=== PATIENT | male | born 1995 ===

== ENCOUNTER 2018-02-06 21:14 | Emergency (ER) | payer SELFPAY ==
[2018-02-06 21:30] VITALS: TEMP 98.9
--- NOTE | 2018-02-06 21:55 | C.PDOC ---
History Of Present Illness 27 year old male presents to the ED for substance abuse. Patient was brought in by [employer] because he was acting bizarre. He admits to smoking marijuana today. He denies any SI/HI, hallucinations, or any other complaints. Time Seen by Provider: 02/06/18 21:54 Chief Complaint (Nursing): Substance Abuse History Per: Patient, Other ([employer] ) History/Exam Limitations: no limitations Onset/Duration Of Symptoms: Hrs Current Symptoms Are (Timing): Still Present Suicide/Self Injury Attempted (Context): None Modifying Factor(s): Marijuana Associated Symptoms: denies: Suicidal Thoughts, Suicidal Plan Additional History Per: Law Enforcement Past Medical History Reviewed: Historical Data, Nursing Documentation, Vital Signs Vital Signs: Last Vital Signs Temp 98.9 F 02/06/18 21:25 Pulse 92 H 02/07/18 01:12 Resp 18 02/07/18 01:12 BP 105/62 02/07/18 01:12 Pulse Ox 100 02/07/18 01:12 Surgical History: No Surg Hx Family History: States: No Known Family Hx - Social History Hx Alcohol Use: (UNKNOWN) Hx Substance Use: Yes - Immunization History Hx Tetanus Toxoid Vaccination: (UNKNOWN) Hx Influenza Vaccination: (UNKNOWN) Hx Pneumococcal Vaccination: (UNKNOWN) Review Of Systems Psych: Negative for: Depression, Suicidal ideation Physical Exam - Physical Exam Appears: Non-toxic, Other (Belligerent, agitated, combative ) Head: Normacephalic Neck: Normal ROM Chest: Symmetrical Cardiovascular: Rhythm Regular Respiratory: No Rales, No Rhonchi, No Wheezing Gastrointestinal/Abdominal: Soft, No Tenderness Extremity: Normal ROM Extremity: Bilateral: Atraumatic Gait: Steady ED Course And Treatment O2 Sat by Pulse Oximetry: 99 (RA) Pulse Ox Interpretation: Normal Reevaluation Time: 05:28 Reassessment Condition: Improved Disposition Counseled Patient/Family Regarding: Studies Performed, Diagnosis, Need For Followup - Disposition Referrals: [facility] [Outside] Disposition: HOME/ ROUTINE Disposition Time: 21:55 Condition: FAIR Instructions: Polysubstance Abuse (DC) Forms: [employer] (Albanian) - Clinical Impression Clinical Impression: Drug abuse - Scribe Statement The provider has reviewed the documentation as recorded by the Scribe Sonia Ma All medical record entries made by the Scribe were at my direction and personally dictated by me. I have reviewed the chart and agree that the record accurately reflects my personal performance of the history, physical exam, medical decision making, and the department course for this patient. I have also personally directed, reviewed, and agree with the discharge instructions and disposition.
[2018-02-07 05:55] VITALS: BP 115/65; PULSE 78; RESP 16; O2SAT 100
== END 2018-02-07 06:50 | disposition home or self-care (01) ==
LOC: C.ER 21:14
DX: F19.10 Other psychoactive substance abuse, uncomplicated (principal)
CPT/HCPCS: 94770; 96372; 99284; J2060; J3486

== ENCOUNTER 2018-02-08 21:11 | Emergency (ER) | payer SELFPAY ==
[2018-02-08 21:21] VITALS: O2SAT 98
--- NOTE | 2018-02-08 22:41 | C.PDOC ---
History Of Present Illness 22 y/o male brought in by ambulance for intoxication. Patient has a history of substance abuse, marijuana abuse, and was seen here for same on 02/06, at which time he was argumentative and confrontational. Patient had complained of brief shortness of breath prior but currently denies it. No other physical complaints. No injuries. Time Seen by Provider: 02/08/18 22:36 Chief Complaint (Nursing): Shortness Of Breath History Per: Patient History/Exam Limitations: intoxication Onset/Duration Of Symptoms: Days Current Symptoms Are (Timing): Still Present Past Medical History Reviewed: Historical Data, Nursing Documentation, Vital Signs Vital Signs: Last Vital Signs Temp 98.3 F 02/08/18 22:46 Pulse 72 02/08/18 22:46 Resp 16 02/08/18 22:46 BP 131/85 02/08/18 22:46 Pulse Ox 98 02/08/18 22:46 - Medical History Other PMH: substance abuse Surgical History: No Surg Hx Family History: States: No Known Family Hx - Social History Hx Alcohol Use: No (UNKNOWN) Hx Substance Use: No - Immunization History Hx Tetanus Toxoid Vaccination: No Hx Influenza Vaccination: No Hx Pneumococcal Vaccination: No Review Of Systems Except As Marked, All Systems Reviewed And Found Negative. Constitutional: Negative for: Fever Cardiovascular: Negative for: Chest Pain Respiratory: Negative for: Shortness of Breath Gastrointestinal: Negative for: Vomiting, Abdominal Pain Psych: Positive for: Other (Substance abuse). Negative for: Suicidal ideation Physical Exam - Physical Exam Appears: Non-toxic, No Acute Distress, Other (Eating a sandwich) Skin: Warm, Dry Head: Atraumatic, Normacephalic Eye(s): bilateral: Normal Inspection Neck: Normal ROM Chest: Symmetrical Cardiovascular: Rhythm Regular, No Murmur Respiratory: Normal Breath Sounds, No Accessory Muscle Use Gastrointestinal/Abdominal: Soft, No Tenderness, No Distention Extremity: Bilateral: Atraumatic, Normal Color And Temperature, Normal ROM Neurological/Psych: Oriented x3, Other (Bizarre, flat affect) Gait: Steady ED Course And Treatment O2 Sat by Pulse Oximetry: 98 (RA) Pulse Ox Interpretation: Normal Medical Decision Making Medical Decision Making: substance abuse, admits to marijuana homeless here for same 02/06 Disposition Doctor Will See Patient In The: Office Counseled Patient/Family Regarding: Studies Performed, Diagnosis - Disposition Referrals: [facility] [Outside] [facility] [Outside] [facility] [Outside] Disposition: HOME/ ROUTINE Disposition Time: 22:40 Condition: GOOD Additional Instructions: outpatient follow-up for Substance Abuse programs Seek nightly Group Home Placement Instructions: Drug Abuse and Drug Addiction (DC) Forms: [employer] (Tuvaluan) - Clinical Impression Clinical Impression: Drug abuse, Homeless single person - Scribe Statement The provider has reviewed the documentation as recorded by the Scribe (Rosalee Cotter) Provider Attestation: All medical record entries made by the Scribe were at my direction and personally dictated by me. I have reviewed the chart and agree that the record accurately reflects my personal performance of the history, physical exam, medical decision making, and the department course for this patient. I have also personally directed, reviewed, and agree with the discharge instructions and disposition.
[2018-02-08 22:47] VITALS: BP 131/85; PULSE 72; RESP 16; TEMP 98.3
== END 2018-02-08 22:46 | disposition home or self-care (01) ==
LOC: C.ER 21:11
DX: F19.10 Other psychoactive substance abuse, uncomplicated (principal); Z59.0 Homelessness